=== PATIENT | female | born 1965 | race Caucasian/White ===

== ENCOUNTER 2016-11-11 19:38 | Emergency (ER) | payer MEDICAID ==
[2016-11-11 20:20] VITALS: BP 123/87
--- NOTE | 2016-11-11 20:56 | EDM.PDOC ---
ED HPI GENERAL MEDICAL PROBLEM - General Chief Complaint: Lower Extremity Injury/Pain Stated Complaint: PAIN IN RT KNEE AND FEELING REALLY SICK Time Seen by Provider: 11/11/16 20:30 Source of Information: Reports: Patient History Limitations: Reports: No Limitations - History of Present Illness INITIAL COMMENTS - FREE TEXT/NARRATIVE: Madonna presents today with complaints of aching right knee pain. She reports nothing improves or worsens the pain. She states she took some acetaminophen 325 mg PO for pain without relief. She also complains of fatigue feeling. 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 Pain Score (Numeric/FACES): 6 - Related Data Allergies Allergy/AdvReac Type Severity Reaction Status Date / Time No Known Allergies Allergy Verified 11/11/16 20:09 Home Meds: Home Meds Levothyroxine Sodium [Synthroid] 175 mcg PO ACBREAKFAST 01/15/16 [History] Sertraline HCl [Sertraline HCl] 100 mg PO DAILY 01/15/16 [History] Venlafaxine [Venlafaxine HCl ER] 150 mg PO DAILY 01/15/16 [History] Lifitegrast [Xiidra] 1 drop EYEBOTH BID 11/11/16 [History] buPROPion [buPROPion XL] 300 mg PO DAILY 11/11/16 [History] traZODone HCl [Trazodone HCl] 50 mg PO BEDTIME 11/11/16 [History] Past Medical History Genitourinary History: Reports: None 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: Musculoskeletal History: Reports: None Neurological History: Reports: Concussion Psychiatric History: Reports: Anxiety, Depression Endocrine/Metabolic History: Reports: Hypothyroidism Hematologic History: Reports: None Immunologic History: Reports: None Oncologic (Cancer) History: Reports: None Dermatologic History: Reports: Cellulitis - Past Surgical History Female Surgical History: Reports: Section Musculoskeletal Surgical History: Reports: None Social & Family History - Tobacco Use Smoking Status *Q: Never Smoker - Recreational Drug Use Recreational Drug Use: No Review of Systems - Review of Systems Review Of Systems: See Below Constitutional: Reports: Fever, Other (Complains of fever today, however did not check temperature with thermometer. ). Denies: Chills, Diaphoresis, Weakness Eyes: Reports: No Symptoms Ears: Reports: No Symptoms Nose: Reports: No Symptoms Mouth/Throat: Denies: Pain, Throat Swelling, Hoarse Voice Respiratory: Reports: Cough. Denies: Shortness of Breath, Wheezing, Pleuritic Chest Pain, Sputum, Hemoptysis Cardiovascular: Denies: Chest Pain, Edema, Irregular Heart Rate, Lightheadedness , Palpitations, Syncope GI/Abdominal: Denies: Abdominal Pain, Constipation, Decreased Appetite, Diarrhea , Hematemesis, Nausea, Vomiting Genitourinary: Denies: Dysuria, Hematuria, Painful Urination Musculoskeletal: Reports: Joint Pain, Other (Right knee pain) Skin: Denies: Cyanosis, Jaundice, Mottled, Pallor, Bruising, Rash, Erythema, Wound Neurological: Denies: Confusion, Dizziness, Headache, Numbness, Paresthesia, Syncope, Tingling, Trouble Speaking, Difficulty Walking, Weakness, Gait Disturbance Psychiatric: Reports: No Symptoms ED EXAM, GENERAL - Physical Exam Exam: See Below Exam Limited By: No Limitations General Appearance: Alert, WD/WN, No Apparent Distress Eye Exam: Bilateral Eye: EOMI, PERRL Ears: Normal External Exam, Normal Canal, Hearing Grossly Normal, Normal TMs Nose: Normal Inspection, Normal Mucosa, No Blood Throat/Mouth: Normal Inspection, Normal Lips, Normal Teeth, Normal Gums, Normal Oropharynx, Normal Voice, No Airway Compromise Head: Atraumatic, Normocephalic Neck: Normal Inspection, Supple, Non-Tender, Full Range of Motion. No: Lymphadenopathy (R), Lymphadenopathy (L) Respiratory/Chest: No Respiratory Distress, Lungs Clear, Normal Breath Sounds, No Accessory Muscle Use, Chest Non-Tender Cardiovascular: Normal Peripheral Pulses, Regular Rate, Rhythm, No Edema, No Gallop, No Murmur Peripheral Pulses: 2+: Radial (L), Radial (R), Dorsalis Pedis (L), Dorsalis Pedis (R) Back Exam: Normal Inspection, Full Range of Motion. No: CVA Tenderness (R), CVA Tenderness (L) Extremities: Normal Inspection, Normal Range of Motion, Non-Tender, No Pedal Edema, Normal Capillary Refill. No: Joint Swelling, Limited Range of Motion, Increased Warmth, Mottled, Pallor, Redness Neurological: Alert, Oriented, CN II-XII Intact, Normal Cognition, Normal Gait, Normal Reflexes, No Motor/Sensory Deficits Psychiatric: Normal Affect, Normal Mood Skin Exam: Warm, Dry, Intact, Normal Color, No Rash Lymphatic: No Adenopathy Course - Vital Signs Last Recorded V/S: Last Vital Signs Temp 36.5 C 11/11/16 20:18 Pulse 97 11/11/16 20:18 Resp 14 11/11/16 20:18 BP 123/87 11/11/16 20:18 Pulse Ox 96 11/11/16 20:18 - Orders/Labs/Meds Labs: Laboratory Tests 11/11/16 11/11/16 11/11/16 Range/Units 21:00 21:00 21:00 WBC 6.1 (4.5-11.0) K/uL RBC 4.26 (3.30-5.50) M/uL Hgb 13.5 (12.0-15.0) g/dL Hct 40.7 (36.0-48.0) % MCV 96 (80-98) fL MCH 32 H (27-31) pg MCHC 33 (32-36) % Plt Count 288 (150-400) K/uL Neut % (Auto) 60 (36-66) % Lymph % (Auto) 26 (24-44) % [place] % (Auto) 10 H (2-6) % Eos % (Auto) 3 (2-4) % Baso % (Auto) 2 H (0-1) % Sodium 140 (140-148) mmol/L Potassium 4.1 (3.6-5.2) mmol/L Chloride 104 (100-108) mmol/L Carbon Dioxide 29 (21-32) mmol/L Anion Gap 6.8 (5.0-14.0) mmol/L BUN 17 (7-18) mg/dL Creatinine 1.2 H (0.6-1.0) mg/dL Est Cr Clr Drug Dosing 50.91 mL/min Estimated GFR (MDRD) 48 L (>60) Glucose 95 (74-106) mg/dL Calcium 8.8 (8.5-10.1) mg/dL Total Bilirubin 0.2 (0.2-1.0) mg/dL AST 18 (15-37) U/L ALT 23 (12-78) U/L Alkaline Phosphatase 68 (46-116) U/L Total Protein 7.2 (6.4-8.2) g/dL Albumin 3.6 (3.4-5.0) g/dL Globulin 3.6 H (2.3-3.5) g/dL Albumin/Globulin Ratio 1.0 L (1.2-2.2) TSH, Ultra Sensitive 0.434 (0.358-3.740) uIU/mL Urine Color Urine Appearance Urine pH (4.5-8.0) Ur Specific Eclectic (1.008-1.030) Urine Protein (NEGATIVE) mg/dL Urine Glucose (UA) (NEGATIVE) mg/dL Urine Ketones (NEGATIVE) mg/dL Urine Occult Blood (NEGATIVE) Urine Nitrite (NEGATIVE) Urine Bilirubin (NEGATIVE) Urine Urobilinogen (NORMAL) mg/dL Ur Leukocyte Esterase (NEGATIVE) Urine RBC (0-5) Urine WBC (0-5) Ur Epithelial Cells Amorphous Sediment Urine Bacteria Urine Mucus 11/11/16 Range/Units 21:24 WBC (4.5-11.0) K/uL RBC (3.30-5.50) M/uL Hgb (12.0-15.0) g/dL Hct (36.0-48.0) % MCV (80-98) fL MCH (27-31) pg MCHC (32-36) % Plt Count (150-400) K/uL Neut % (Auto) (36-66) % Lymph % (Auto) (24-44) % [place] % (Auto) (2-6) % Eos % (Auto) (2-4) % Baso % (Auto) (0-1) % Sodium (140-148) mmol/L Potassium (3.6-5.2) mmol/L Chloride (100-108) mmol/L Carbon Dioxide (21-32) mmol/L Anion Gap (5.0-14.0) mmol/L BUN (7-18) mg/dL Creatinine (0.6-1.0) mg/dL Est Cr Clr Drug Dosing mL/min Estimated GFR (MDRD) (>60) Glucose (74-106) mg/dL Calcium (8.5-10.1) mg/dL Total Bilirubin (0.2-1.0) mg/dL AST (15-37) U/L ALT (12-78) U/L Alkaline Phosphatase (46-116) U/L Total Protein (6.4-8.2) g/dL Albumin (3.4-5.0) g/dL Globulin (2.3-3.5) g/dL Albumin/Globulin Ratio (1.2-2.2) TSH, Ultra Sensitive (0.358-3.740) uIU/mL Urine Color Yellow Urine Appearance Clear Urine pH 6.0 (4.5-8.0) Ur Specific Ec[place] 1.020 (1.008-1.030) Urine Protein Negative (NEGATIVE) mg/dL Urine Glucose (UA) Normal (NEGATIVE) mg/dL Urine Ketones Negative (NEGATIVE) mg/dL Urine Occult Blood Negative (NEGATIVE) Urine Nitrite Negative (NEGATIVE) Urine Bilirubin Negative (NEGATIVE) Urine Urobilinogen Normal (NORMAL) mg/dL Ur Leukocyte Esterase Negative (NEGATIVE) Urine RBC Not seen (0-5) Urine WBC 0-5 (0-5) Ur Epithelial Cells Few Amorphous Sediment Not seen Urine Bacteria Few Urine Mucus Not seen Lab work reviewed with patient, all her questions answered. Departure - Departure Time of Disposition: 22:34 Disposition: Home, Self-Care 01 Condition: Good Clinical Impression: Right knee pain, Elevated creatine kinase level, Abnormal creatinine clearance glomerular filtration - Discharge Information Referrals: Lucy Collazo CNM [Primary Care Provider] - Forms: ED Department Discharge Additional Instructions: There are no signs of infection today. Keep yourself hydrated by drinking plenty of water. You may take acetaminophen (or tylenol arthritis) 1000mg PO three times a day for your knee pain. Do not take naproxen or ibuprofen for pain due to abnormal kidney function lab work. Follow up with your primary care provider for recheck and any additional lab work needed in two weeks. Today: WBC 6.1 Hgb 13.5 Na 140 K+ 4.1 TSH 0.434 BUN 17 Creat 1.2 GFR 48 Return at any time for worsening, issues or concerns. - Assessment/Plan Assessment:: Right knee pain - most likely arthritis in nature, no sign of infection today. Elevated Creat Abnormal Creat Clearance Glomerular Filtration Plan: There are no signs of infection today. Patient advised to stay hydrated by drinking plenty of water. She may take acetaminophen (or tylenol arthritis) 1000mg PO three times a day for your knee pain. Do not take naproxen or ibuprofen for pain due to abnormal kidney function lab work. Follow up with primary care provider for recheck and any additional lab work needed in two weeks. Today: WBC 6.1 Hgb 13.5 Na 140 K+ 4.1 TSH 0.434 BUN 17 Creat 1.2 GFR 48 Return at any time for worsening, issues or concerns.
== END 2016-11-11 22:50 | disposition home or self-care (01) ==
LOC: JP.ED 19:38
DX: M25.561 Pain in right knee (principal); R94.4 Abnormal results of kidney function studies; F32.9 Major depressive disorder, single episode, unspecified; F41.9 Anxiety disorder, unspecified; E03.9 Hypothyroidism, unspecified; Z79.899 Other long term (current) drug therapy
CPT/HCPCS: 36415; 80053; 81001; 84443; 85025; 99284